=== PATIENT | female | born 1935 | race Caucasian/White ===

== ENCOUNTER 2017-05-16 12:03 | Emergency (ER) | payer OTHER, MEDICARE ==
--- NOTE | 2017-05-16 12:19 | PDOC ---
History of Present Illness - General Chief Complaint: Laceration Stated Complaint: HEAD INJURY Time Seen by Provider: 05/16/17 12:19 - History of Present Illness Initial Comments: 05/16/17 12:43 Ms. Moreira is a 81 yo female w/ pmh of HTN and diet controlled DM who presents via EMS after mechanical fall earlier today. She reports she was walking out of the grocery store when she tripped over a root and fell. She hit her head but denies any LOC or neurological sequelae. She has not other complaints besides a laceration on her forehead and pain at site. The patient denies chest pain, shortness of breath, headache and dizziness. Denies fever, chills, nausea, vomit, diarrhea and constipation. Denies dysuria, frequency, urgency and hematuria. Allergies: NKDA Past History - Past Medical History Allergies/Adverse Reactions: Allergies Allergy/AdvReac Type Severity Reaction Status Date / Time No Known Allergies Allergy Verified 10/22/15 10:12 Home Medications: Ambulatory Orders Biotin 2,500 mcg PO DAILY capsule 07/20/14 Calcium Carbonate [Caltrate 600] 600 mg PO DAILY 10/18/14 Cranberry 400 mg PO DAILY 10/18/14 Folic Acid/Multivit-Min/Lutein [Centrum Silver Chewable Tablet] 1 each PO DAILY 10/18/14 Alendronate Sodium [Fosamax] 1 tab PO WEEKLY 10/22/15 Losartan Potassium 25 mg PO DAILY 05/16/17 Anemia: No Asthma: No Cancer: No Cardiac Disorders: No CVA: No COPD: No CHF: No Dementia: No Diabetes: No GI Disorders: No Disorders: No HTN: Yes Hypercholesterolemia: No Liver Disease: No Seizures: No Thyroid Disease: No - Surgical History Abdominal Surgery: No Appendectomy: Yes Cardiac Surgery: No Cholecystectomy: No Lung Surgery: No Neurologic Surgery: No Orthopedic Surgery: No - Suicide/Smoking/Psychosocial Hx Smoking History: Never smoked Have you smoked in the past 12 months: No Hx Alcohol Use: No Drug/Substance Use Hx: No Substance Use Type: None Hx Substance Use Treatment: No Review of Systems - Review of Systems Comments:: 05/16/17 12:46 GENERAL/CONSTITUTIONAL: No fever or chills. No weakness. HEAD, EYES, EARS, NOSE AND THROAT: +Pain where she hit her head. No change in vision. No ear pain or discharge. No sore throat. CARDIOVASCULAR: No chest pain or shortness of breath RESPIRATORY: No cough, wheezing, or hemoptysis. GASTROINTESTINAL: No nausea, vomiting, diarrhea or constipation. GENITOURINARY: No dysuria, frequency, or change in urination. MUSCULOSKELETAL: No joint or muscle swelling or pain. No neck or back pain. SKIN: No rash NEUROLOGIC: No vertigo, loss of consciousness, or change in strength/sensation. ENDOCRINE: No increased thirst. No abnormal weight change HEMATOLOGIC/LYMPHATIC: No anemia, easy bleeding, or history of blood clots. ALLERGIC/IMMUNOLOGIC: No hives or skin allergy. *Physical Exam - Physical Exam Comments: 05/16/17 12:46 GENERAL: Awake, alert, and fully oriented, in no acute distress HEAD: +Laceration to forehead. Normocephalic, atraumatic EYES: PERRLA, EOMI, sclera anicteric, conjunctiva clear ENT: Auricles normal inspection, hearing grossly normal, nares patent, oropharynx clear without exudates. Moist mucosa NECK: Normal ROM, supple, no lymphadenopathy, JVD, or masses LUNGS: No distress, speaks full sentences, clear to auscultation bilaterally HEART: Regular rate and rhythm, normal S1 and S2, no murmurs, rubs or gallops, peripheral pulses normal and equal bilaterally. ABDOMEN: Soft, nontender, normoactive bowel sounds. No guarding, no rebound. No masses EXTREMITIES: Normal inspection, Normal range of motion, no edema. No clubbing or cyanosis. NEUROLOGICAL: Cranial nerves II through XII grossly intact. Normal speech, normal gait, no focal sensorimotor deficits SKIN: Warm, Dry, normal turgor, no rashes or lesions noted. Procedures - Laceration/Wound Repair Left Upper Face Wound Length: 2.6 to 5.0 cm Wound Explored: clean Wound's Depth, Shape: into muscle Irrigated w/ Saline: Yes Betadine Prep: No Anesthesia: 1% Lidocaine Amount of Anesthetic (ccs): 3 Wound Debrided: minimal Wound Repaired With: Sutures Suture Size/Type: 5:0 Number of Sutures: 8 Layer Closure: No Sterile Dressing Applied: Yes Splint Applied: No Sling Applied: No Medical Decision Making - Medical Decision Making 05/16/17 15:34 Ms. Moreira is a 81 yo female w/ pmh of htn and DM who presents s/p fall. Head CT negative for acute pathology. Patient forehead laceration sutured close w/ out problem. Will d/c to home w/ instructions to f/u for future removal in 5-7 days. *DC/Admit/Observation/Transfer Diagnosis at time of Disposition: Laceration - Discharge Dispostion Disposition: HOME - Referrals Referrals: Sunil Flores MD [Primary Care Provider] - - Patient Instructions Printed Discharge Instructions: DI for Laceration Repair, DI for Suture Removal Additional Instructions: Please return to ER if any fever, warmth at site, purulent fluid from site, or pain not controllable with over the counter medications. - Post Discharge Activity
[2017-05-16 12:24] VITALS: TEMP 97.9; BMI 23.0
[2017-05-16] MEDS ORDERED: NALOXONE HCL 0.4 MG/ML VIAL IVPUSH ONE (13:50)
--- NOTE | 2017-05-16 14:47 | PDOC ---
Attending Attestation - Resident Resident Name: SteveradhaleonLionNicolas - ED Attending Attestation I have performed the following: I have examined & evaluated the patient, The case was reviewed & discussed with the resident, I agree w/resident's findings & plan, Exceptions are as noted - HPI HPI: 05/16/17 14:45 81-year-old female resents with facial/forehead laceration after mechanical trip and fall. Clearly remembers the history, struck her head on the ground, no LOC. No general headache or focal neuro complaints, unknown last tetanus. No other injuries. No nausea or vomiting. - Physicial Exam PE: 05/16/17 14:46 Vital signs normal. Well-appearing, pleasant and conversant, smiling Curvilinear 4-5 cm laceration from the nasal bridge to above the medial left eyebrow. Deep to muscle, but no muscle involvement No midline spine tenderness Remainder of trauma exam is unremarkable - Medical Decision Making 05/16/17 14:46 Patient seen and evaluated with the resident. I agree with the overall evaluation, assessment, and management with the following summary of visit: 81-year-old female with mechanical trip and fall with forehead laceration requiring repair. CT head shows no acute pathology Update tetanus Laceration repair as per resident note under my direct supervision Discharge, understands return precautions
[2017-05-16 15:48] VITALS: BP 154/88; PULSE 68
== END 2017-05-16 15:48 | disposition home or self-care (01) ==
LOC: JER 12:03
PROC: 0JQ10ZZ Repair Face Subcutaneous Tissue and Fascia, Open Approach (ICD-10-PCS; principal; 2017-05-16)
DX: S01.81XA Laceration without foreign body of other part of head, initial encounter (principal); W18.09XA Striking against other object with subsequent fall, initial encounter; Y93.89 Activity, other specified; Y92.512 Supermarket, store or market as the place of occurrence of the external cause; Y99.8 Other external cause status
CPT/HCPCS: 70450-TC; 99283-25

== ENCOUNTER 2017-05-23 11:54 | Emergency (ER) | payer OTHER, MEDICARE ==
[2017-05-23 12:00] VITALS: BP 164/91; PULSE 95; TEMP 97.8; BMI 22.3
--- NOTE | 2017-05-23 13:30 | PDOC ---
Suture Removal/Wound Check HPI - History of Present Illness Chief Complaint: Suture/Staple Removal(Here) Stated Complaint: SUTURE/STAPLE REMOVAL (HERE) Time Seen by Provider: 05/23/17 13:23 History Source: Yes: Patient Treated at: [facility] ED - Previous ED Treatment Type of procedure performed on last visit: Yes: Laceration Repair Tetanus Immunization: Yes: Not given @ last ED visit Past History - Past Medical History Allergies/Adverse Reactions: Allergies Allergy/AdvReac Type Severity Reaction Status Date / Time No Known Allergies Allergy Verified 05/23/17 11:57 Home Medications: Ambulatory Orders Biotin 2,500 mcg PO DAILY capsule 07/20/14 Calcium Carbonate [Caltrate 600] 600 mg PO DAILY 10/18/14 Cranberry 400 mg PO DAILY 10/18/14 Folic Acid/Multivit-Min/Lutein [Centrum Silver Chewable Tablet] 1 each PO DAILY 10/18/14 Alendronate Sodium [Fosamax] 1 tab PO WEEKLY 10/22/15 Losartan Potassium 25 mg PO DAILY 05/16/17 Anemia: No Asthma: No Cancer: No Cardiac Disorders: No CVA: No COPD: No CHF: No DVT: No Dementia: No Diabetes: No GI Disorders: No Disorders: No HTN: Yes Hypercholesterolemia: No Liver Disease: No Seizures: No Thyroid Disease: No - Surgical History Abdominal Surgery: Yes (UTEROUS POLYPS) Appendectomy: Yes Cardiac Surgery: No Cholecystectomy: No Lung Surgery: No Neurologic Surgery: No Orthopedic Surgery: No - Suicide/Smoking/Psychosocial Hx Smoking History: Never smoked Have you smoked in the past 12 months: No Information on smoking cessation initiated: No Hx Alcohol Use: No Drug/Substance Use Hx: No Substance Use Type: None Hx Substance Use Treatment: No Suture Removal/Wound Check PE - Physical Exam Laceration/Wound Check Symptoms: reports: None Current Severity Level: None Location of Laceration/Wound: left: Face (8 sutures removed. site clean and dry) Pain Radiation: None Comments: 05/23/17 13:35 + hematoma to left side of face *Review of Systems - Review of Systems Able to Perform ROS?: Yes Constitutional: No: Symptoms Reported, See HPI, Chills, Diaphoresis, Fever, Loss of Appetite, Malaise, Night Sweats, Weakness, Weight Stable, Unintentional Wgt. Loss, Unexplained wgt Loss, Other Integumentary: Yes: Other (suture removal) Medical Decision Making - Medical Decision Making 05/23/17 13:35 A: suture removal P: tetanus updated. wound clean dry and intact *DC/Admit/Observation/Transfer Diagnosis at time of Disposition: Visit for suture removal - Discharge Dispostion Disposition: HOME - Referrals Referrals: Sunil Flores MD [Primary Care Provider] - - Patient Instructions Printed Discharge Instructions: DI for Suture Removal Additional Instructions: keep site clean and dry. apply Vitamin E oil twice a day to site once its completely healed. cover from sun - Post Discharge Activity
[2017-05-23] MEDS ORDERED: TETANUS AND DIPHTHERIA TOXOID 0.5 ML DISP.SYRIN IM ONE (13:32)
== END 2017-05-23 13:42 | disposition home or self-care (01) ==
LOC: JERFT 11:54
DX: Z48.02 Encounter for removal of sutures (principal)
CPT/HCPCS: 99281-25

== ENCOUNTER 2017-09-07 09:08 | Emergency (ER) | payer OTHER, MEDICARE ==
[2017-09-07 09:27] VITALS: BP 150/69; PULSE 90; TEMP 98.6; BMI 22.3
[2017-09-07] MEDS ORDERED: BACITRACIN 15 GM TUBE TOPICAL OINTMENT ONE (10:55)
--- NOTE | 2017-09-07 11:04 | PDOC ---
History of Present Illness - General Chief Complaint: Injury Stated Complaint: INJURY Time Seen by Provider: 09/07/17 10:53 History Source: Patient Exam Limitations: No Limitations - History of Present Illness Initial Comments: 09/07/17 12:22 Stumbled and fell in bedroom, falling against bed and scraping right mathis and landing on left elbow. Patient states has pain, redness. Cleaned right leg wound with soap and water and use bacitracin and dressing but was concerned was not healing well. Also complains of left elbow pain with some tenderness on flexion and extension. No head injury, no other injury. Occurred: reports: just prior to arrival Severity: reports: mild, moderate Pain Location: reports: lower extremity (right mathis), upper extremity (left elbow with pain and brusiing- ) Method of Injury: Yes: fall Loss of Consciousness: no loss of consciousness Associated Symptoms (Fall): denies symptoms Past History - Travel Traveled outside of the country in the last 30 days: No Close contact w/someone who was outside of country & ill: No - Past Medical History Allergies/Adverse Reactions: Allergies Allergy/AdvReac Type Severity Reaction Status Date / Time No Known Allergies Allergy Verified 09/07/17 09:27 Home Medications: Ambulatory Orders Losartan Potassium 25 mg PO DAILY 05/16/17 Acetaminophen [Tylenol -] 650 mg PO Q4H #100 tablet 09/07/17 Anemia: No Asthma: No Cancer: No Cardiac Disorders: No CVA: No COPD: No CHF: No DVT: No Dementia: No Diabetes: No GI Disorders: No Disorders: No HTN: Yes Hypercholesterolemia: No Liver Disease: No Seizures: No Thyroid Disease: No - Surgical History Abdominal Surgery: Yes (UTEROUS POLYPS) Appendectomy: Yes Cardiac Surgery: No Cholecystectomy: No Lung Surgery: No Neurologic Surgery: No Orthopedic Surgery: No - Suicide/Smoking/Psychosocial Hx Smoking History: Never smoked Have you smoked in the past 12 months: No Information on smoking cessation initiated: No Hx Alcohol Use: No Drug/Substance Use Hx: No Substance Use Type: None Hx Substance Use Treatment: No Trauma Specific PMHX - Complaint Specific PMHX Back Injury: No Neck Injury: No Review of Systems - Review of Systems Able to Perform ROS?: Yes Is the patient limited [place] proficient: Yes Constitutional: Yes: Symptoms Reported, See HPI HEENTM: Yes: See HPI. No: Symptoms Reported Musculoskeletal: Yes: Symptoms Reported, See HPI, Joint Pain (left elbow) Integumentary: Yes: Symptoms Reported, See HPI, Bruising, Other (abrasion to right upper mathis) All Other Systems: Reviewed and Negative *Physical Exam - Vital Signs Last Vital Signs Temp Pulse Resp BP Pulse Ox 98.6 F 90 18 150/69 100 09/07/17 09:10 09/07/17 09:10 09/07/17 09:10 09/07/17 09:10 09/07/17 09:10 - Physical Exam General Appearance: Yes: Nourished, Appropriately Dressed, Apparent Distress, Mild Distress HEENT: positive: MERVAT, Normal ENT Inspection, TMs Normal, Pharynx Normal Neck: positive: Supple Musculoskeletal: positive: Normal Inspection, Other (superficial abrasion approximately 2 cm to the lateral aspect of upper tibia mathis. No purulent drainage, no erythema, is full thickness. No evidence of cellulitis. Has full range of motion to foot, neurovascular and intact. No knee pain, no true bone tenderness.). negative: CVA Tenderness, Vertebral Tenderness Integumentary: positive: Normal Color, Ecchymosis, Bruising (left elbow ecchymoses noted inferior to olecranon process. Range of motion is intact however has tenderness reproduced with supination and pronation at wrist. Has some mild tenderness at the occipital radius. 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 Indicating a fracture. Instructions multiple times her sling use but patient refuses to wear sling and insisted will protect arm. Understands has a fracture to her elbow and will need follow-up with orthopedist this week. Wound to her right leg cleaned and dressed with bacitracin ointment and Band-Aid. Patient will use Tylenol for pain relief. *DC/Admit/Observation/Transfer Diagnosis at time of Disposition: Radial head fracture Qualifiers: Encounter type: initial encounter Fracture type: closed Fracture alignment: nondisplaced Laterality: left Qualified Code(s): S52.125A - Nondisplaced fracture of head of left radius, initial encounter for closed fracture Abrasion of elbow, left Qualifiers: Encounter type: initial encounter Qualified Code(s): S50.312A - Abrasion of left elbow, initial encounter - Discharge Dispostion Disposition: HOME Condition at time of disposition: Stable Admit: No - Prescriptions Prescriptions: Acetaminophen [Tylenol -] 650 mg PO Q4H #100 tablet - Referrals Referrals: Sunil Flores MD [Primary Care Provider] - Hans Stoll MD [Staff Physician] - - Patient Instructions Printed Discharge Instructions: How to Use a Sling, DI for Elbow Fracture, DI for Abrasion Additional Instructions: Rest, ice to area on and off for 15 minutes 4-6 times a day Avoid heavy lifting or exercise until pain and swelling is resolved or until further directed Keep area highly elevated to reduce swelling Use splints/Denilson wrap as directed Clean and reapply bacitracin ointment to right leg twice a day until healed Followup with orthopedist in one to 2 days if not improving, if significantly improved may wait one week for followup with orthopedist May use tylenol 2- 325mg tablets every 6 hours as needed for pain - Post Discharge Activity
[2017-09-07] MEDS ORDERED: BACITRACIN 15 GM TUBE TOPICAL OINTMENT TP ONE (11:11)
[2017-09-07] MEDS ORDERED: ACETAMINOPHEN 325 MG TABLET (FP) ONE (12:34)
[2017-09-07] MEDS ORDERED: ACETAMINOPHEN 325 MG TABLET (FP) PO ONE (12:37)
== END 2017-09-07 12:02 | disposition home or self-care (01) ==
LOC: JER 09:08 → JERFT 09:08
DX: S52.125A Nondisplaced fracture of head of left radius, initial encounter for closed fracture (principal); S50.312A Abrasion of left elbow, initial encounter; S80.811A Abrasion, right lower leg, initial encounter; W01.190A Fall on same level from slipping, tripping and stumbling with subsequent striking against furniture, initial encounter; Y93.89 Activity, other specified; Y92.032 Bedroom in apartment as the place of occurrence of the external cause; I10 Essential (primary) hypertension
CPT/HCPCS: 73070-TC-LT-FY; 99282-25